=== PATIENT | female | born 1975 | race Caucasian/White ===

== ENCOUNTER 2016-08-10 19:36 | Emergency (ER) | payer MEDICARE ==
[~2016-08-10] VITALS: Ht 162.6 cm; Wt 95.3 kg
[~2016-08-10 19:36] MED LIST: ARIP30TA PO; CELE200C PO; CLIN-44 PO; CLON2TAB PO; FERR-26 PO; FLUT1DIS5 IH; HYDR-971 PO; INSU100C4 SQ; INSU100V8 SQ; LITH600C PO; OMEP20CA5 PO; OXCA300T3 PO; POLY17PO5 PO; PROVENTIL HFA6.7 GM IH; SIMV40TA3 PO
[2016-08-10 20:03] VITALS: BP 144/83
--- NOTE | 2016-08-10 21:10 | PHYS DOC ---
Past Medical History Past Medical History: Anxiety, Asthma, Bipolar, Depression, Diabetes-Type II, High Cholesterol, Schizophrenia Additional Past Medical Histor: Schizo disorder, poss personality disorder, PTSD Past Surgical History: Appendectomy, , Tonsillectomy, Other Additional Past Surgical Histo: Partial bowel, L) ovarian cyst, partial hysterect Alcohol Use: None Drug Use: None Adult General Chief Complaint Chief Complaint: PAIN CONTROL HPI HPI Patient is a 41 year old female presents emergency department stating that she is having left chronic knee pain. She states that she is out of her hydrocodone' s. She states she has an appointment on the third to see her primary care physician. Patient denies any trauma or any injuries. Patient does state that she's been hospitalized for the last week at [facility] for knee pain and discomfort. She states that she does have nerve pain in the left leg. She denies any further complaints at this time. Review of Systems Review of Systems Constitutional: Denies fever or chills [] Eyes: Denies change in visual acuity, redness, or eye pain [] HENT: Denies nasal congestion or sore throat [] Respiratory: Denies cough or shortness of breath [] Cardiovascular: No additional information not addressed in HPI [] GI: Denies abdominal pain, nausea, vomiting, bloody stools or diarrhea [] : denies dysuria or hematuria. Musculoskeletal: Denies back pain. Chronic left knee pain Integument: Denies rash or skin lesions [] Neurologic: Denies headache, focal weakness or sensory changes [] Allergies Allergies Allergies Coded Allergies Type Severity Reaction Last Updated Verified Penicillins Allergy Severe "Stop breathing." 07/07/13 Yes risperidone Allergy Unknown "Jaw locks." 07/07/13 Yes Physical Exam Physical Exam Constitutional: Well developed, well nourished, no acute distress, non-toxic appearance. [] HENT: Normocephalic, atraumatic, bilateral external ears normal, oropharynx moist, no oral exudates, nose normal. [] Eyes: PERRLA, EOMI, conjunctiva normal, no discharge. [] Neck: Normal range of motion, no tenderness, supple, no stridor. [] Cardiovascular:Heart rate regular rhythm, no murmur [] Lungs & Thorax: Bilateral breath sounds clear to auscultation [] Skin: Warm, dry, no erythema, no rash. [] Back: No tenderness Extremities: No tenderness, no cyanosis, no clubbing, ROM intact, no edema. Peripheral pulses 2+ cap refill brisk less than 2 seconds. Neurologic: Alert and oriented X 3, normal motor function, normal sensory function, no focal deficits noted. [] Psychologic: Affect normal, judgement normal, mood normal. [] Current Patient Data Vital Signs Vital Signs Date Time Temp Pulse Resp B/P Pulse Ox O2 Delivery O2 Flow Rate FiO2 08/10/16 20:03 98.1 100 18 100 Room Air 98.1 EKG EKG [] Radiology/Procedures Radiology/Procedures [] Course & Med Decision Making Course & Med Decision Making Pertinent Labs and Imaging studies reviewed. (See chart for details) Patient had been prescribed hydrocodone on 07/11/16 7.5 mg a total of 30 of them which should've lasted her for approximately 7 days. She had also had these filled at the pharmacy due to [place]. A shunt was also having hydrocodone 5's filled on 07/16/16 she had a total of 90 filled at [facility]. During the month patient was also hospitalized for a week at [facility]. Patient is stating that she is currently out of medications for pain. With the information obtained through [employer] she should have enough medications to last her for 37 days. Patient will be provided with medication for pain control here in the emergency department. Spoke with patient in regards to not being able to provide her pain medication at discharge. Patient tells that the information that we have obtained through [employer] is incorrect. She'll provided with signs and symptoms to return back to emergency department. [] Dragon Disclaimer Dragon Disclaimer This electronic medical record was generated, in whole or in part, using a voice recognition dictation system. Departure Departure Impression: Primary Impression: Chronic pain of left knee Additional Impression: Drug-seeking behavior Disposition: HOME, SELF-CARE Condition: STABLE Referrals: MINA AGEE MD (PCP) Patient Instructions: Knee Pain, [id number] Additional Instructions: Activity as tolerated. Follow-up through primary care physician on Saturday for further pain management. Return back to emergency department as needed for signs and symptoms of become worse. You may use Tylenol or ibuprofen [id number] for pain. Problem Qualifiers MARK ANTHONY MORAN [employer] Aug 10, 2016 21:10
[2016-08-10] MEDS ORDERED: HYDROCODONE/APAP 5/325MG TABLET. PO ONE (22:00)
== END 2016-08-10 21:38 | disposition home or self-care (01) ==
LOC: ER 19:36
DX: G89.29 Other chronic pain (principal); M25.562 Pain in left knee; Z76.5 Malingerer [conscious simulation]; M79.605 Pain in left leg; E11.9 Type 2 diabetes mellitus without complications; F20.9 Schizophrenia, unspecified; E78.00 Pure hypercholesterolemia, unspecified; J45.909 Unspecified asthma, uncomplicated; F31.9 Bipolar disorder, unspecified; F43.10 Post-traumatic stress disorder, unspecified; Z90.710 Acquired absence of both cervix and uterus; Z90.49 Acquired absence of other specified parts of digestive tract; Z98.890 Other specified postprocedural states; F60.9 Personality disorder, unspecified; Z88.0 Allergy status to penicillin; Z88.8 Allergy status to other drugs, medicaments and biological substances
CPT/HCPCS: 99282